=== PATIENT | male | born 1935 | race Caucasian/White ===

== ENCOUNTER 2017-10-31 18:37 | Inpatient (IN) | payer MEDICARE, OTHER ==
[~2017-10-31] VITALS: Ht 172.7 cm; Wt 66.8 kg
--- NOTE | ~2017-10-31 | HP ---
PATIENT: ALLISON MIGUEL MEDICAL RECORD: [id number] ACCOUNT: [id number] LOCATION:[address] : 35 ADMISSION DATE: 11/01/17 HISTORY AND PHYSICAL EXAMINATION DATE OF ADMISSION: 11/01/2017 CHIEF COMPLAINT: Cough and fever. HISTORY OF PRESENT ILLNESS: An 82-year-old white male started getting sick almost 10 days ago. He had lot of cough, congestion. He saw Dr. Tam in our office on 10/26/2017, and was treated with Tamiflu for presumed influenza. He has completed that. He has continued to have cough and fevers got worse, it was up to 104 at home. He presented to the Emergency Department. His white count was 16,000. Rapid influenza tests were negative. Chest x-ray showed nothing acute. Urinalysis showed just a few bacteria. His blood pressure in the ER was 106/60 when he got there and went down to 84/60 later. He is admitted for cough and fever. PAST MEDICAL HISTORY AND SURGICAL HISTORY: The patient has BPH, high cholesterol, and insomnia. 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 Surgical history: Tonsillectomy. HOME MEDICATIONS: Rosuvastatin 10 mg once a day, zolpidem 10 mg at bedtime, Plavix 75 mg once a day, and Crestor 10 mg once a day. DRUG ALLERGIES: None. HABITS: Former smoker. No alcohol or drugs. SOCIAL HISTORY: He is and retired. FAMILY HISTORY: Father at 81, he had a stroke. Mother at 80. She had diabetes and some sort of cancer. Her brother of lung cancer and another brother of a ruptured aneurysm. IMMUNIZATION HISTORY: He had Pneumovax 23 in 2005 and Prevnar 13 in 2014. REVIEW OF SYSTEMS: GENERAL: No major weight changes. HEENT: No particular sinus or allergy problems. RESPIRATORY: No history of COPD or emphysema. CARDIAC: No history of coronary artery disease. GASTROINTESTINAL: No diarrhea, constipation, or significant heartburn. GENITOURINARY: He has BPH. MUSCULOSKELETAL: No significant joint aches and pains. NEUROLOGIC: He had a CVA in 2014 with no residual. PSYCHIATRIC: No depression or melancholia. PHYSICAL EXAMINATION: VITAL SIGNS: Temperature 98.8, pulse 99, respirations 16, blood pressure is still running low and was measured at 84/46, O2 sat 95% on room air. GENERAL: He is awake, alert, does not appear to be in acute distress. HEENT: Grossly within normal limits. NECK: Supple. No JVD or bruit. HISTORY AND PHYSICAL [id number] ALLISON MIGUEL HEART: Regular rate and rhythm without murmur. LUNGS: Clear to auscultation. ABDOMEN: Soft, flat, nontender. EXTREMITIES: No edema. LABORATORY DATA: Urinalysis specific gravity 1.020, large ketones, negative leukocyte esterase, only a few bacteria. CBC with a white count 16,200, hemoglobin 14.3, 82% polys. Basic metabolic panel is all okay. Lactic acid is normal. Liver functions are all okay. Rapid influenza test negative. Chest x-ray shows no acute process. ASSESSMENT: Fever, cough, and hypotension. PLAN: IV fluids, started on Rocephin. Urine and blood cultures have been obtained. He is treated with Lovenox and Pepcid. Follow up cultures for her. Other tests and procedures as warranted. TRANSINT:[id number] Voice Confirmation ID: [id number] DOCUMENT ID: [id number] ANNABELLA ESTRADA MD at 1342 CC: [id number] DICTATION DATE: 11/01/171940 JACK TAMP OPERATOR: 11/01/172200 ADM IN [id number] [place] [address]
[~2017-10-31 18:37] MED LIST: BAYER CHEWABLE81 MG PO; CRESTOR10 MG PO; JALYN 0.5-0.41 EACH PO; MULTIPLE VITAMI1 TA1 PO; PLAVIX75 MG PO
[2017-10-31 20:01] LABS: BASOPHILS 0.1 % (0-2); EOSINOPHILS 0 % (0-7); HEMATOCRIT 41.1 % (42.0-54.0); HEMOGLOBIN 14.3 g/dL (13.5-17.5); IMMATURE GRANULOCYTES 0.7 % (0-5); LYMPHOCYTES 7.8 % (15-50); MCH 32.1 pg (26.0-34.0); MCHC 34.8 g/dL (31.0-37.0); MCV 92.2 fL (80.0-100.0); MEAN PLATELET VOLUME 9.5 fL (7.4-10.4); MONOCYTES 8.2 % (2-11); NEUTROPHILS 83.2 % (40-80); PLATELET COUNT 249 10x3/uL (130-400); RBC 4.46 10x6/uL (4.20-6.10); RDW 13.4 % (11.5-14.5); WBC 16.2 10x3/uL (4.8-10.8)
[2017-10-31 20:32] LABS: ALBUMIN 2.8 g/dL (3.4-5.0); ANION GAP 15.2 mmol/L (8-16); BILIRUBIN - TOTAL 0.88 mg/dL (0.2-1.3); CALCIUM 8.5 mg/dL (8.5-10.1); CREATININE - SERUM 1.1 mg/dL (0.6-1.3); POTASSIUM - SERUM 4.2 mmol/L (3.5-5.1)
[2017-10-31 22:40] LABS: APPEARANCE CLEAR (CLEAR); COLOR DK YELLOW (YELLOW); NITRITE NEGATIVE (NEGATIVE)
[2017-10-31 22:41] LABS: BILIRUBIN NEGATIVE (NEGATIVE); GLUCOSE NEGATIVE (NEGATIVE); KETONE LARGE mg/dL (NEGATIVE); PROTEIN TRACE mg/dL (NEGATIVE); UROBILINOGEN NORMAL (NORMAL)
[2017-10-31 22:42] LABS: BACTERIA FEW /hpf (NONE SEEN); MUCUS <1+ /lpf (NONE SEEN); RED CELLS - URINE 0-5 /hpf (0-5); WHITE CELLS - URINE 0-5 /hpf (0-5)
[2017-11-01 18:14] VITALS: BP 84/46; Ht 172.7 cm; Wt 66.8 kg
[2017-11-01 20:00] VITALS: BP 100/56
[2017-11-02] VITALS: BP 87/44
[2017-11-02 04:00] VITALS: BP 108/62
[2017-11-02 06:28] LABS: BASOPHILS 0.1 % (0-2); EOSINOPHILS 0.2 % (0-7); HEMOGLOBIN 13.1 g/dL (13.5-17.5); IMMATURE GRANULOCYTES 0.2 % (0-5); LYMPHOCYTES 12.3 % (15-50); MCH 31.6 pg (26.0-34.0); MCHC 34.5 g/dL (31.0-37.0); MCV 91.8 fL (80.0-100.0); MEAN PLATELET VOLUME 9.6 fL (7.4-10.4); MONOCYTES 8.5 % (2-11); NEUTROPHILS 78.7 % (40-80); PLATELET COUNT 250 10x3/uL (130-400); RBC 4.14 10x6/uL (4.20-6.10); RDW 13.6 % (11.5-14.5); WBC 12.2 10x3/uL (4.8-10.8)
[2017-11-02 06:41] LABS: CALC OSMOLALITY 283 mosm/kg (275-300); CALCIUM 7.8 mg/dL (8.5-10.1); CARBON DIOXIDE 26.6 mmol/L (21.0-32.0); CHLORIDE - SERUM 107 mmol/L (98-107); GLUCOSE 96 mg/dL (74-106); POTASSIUM - SERUM 3.6 mmol/L (3.5-5.1); SODIUM 143 mmol/L (136-145); UREA NITROGEN 10 mg/dL (7-18)
[2017-11-02 06:46] LABS: CREATININE - SERUM 0.8 mg/dL (0.6-1.3); eGFR NON AFRICAN AMERICAN > 90 mL/min (90-120)
[2017-11-02 11:01] VITALS: BP 96/59
[2017-11-02 13:41] VITALS: BP 119/65
[2017-11-02 17:40] VITALS: BP 110/70
[2017-11-02 19:00] VITALS: BP 117/67
[2017-11-03 04:00] VITALS: BP 106/68
[2017-11-03 06:10] LABS: BASOPHILS 0.1 % (0-2); EOSINOPHILS 0.5 % (0-7); HEMATOCRIT 32.8 % (42.0-54.0); HEMOGLOBIN 11.4 g/dL (13.5-17.5); IMMATURE GRANULOCYTES 0.3 % (0-5); LYMPHOCYTES 20.1 % (15-50); MCH 31.8 pg (26.0-34.0); MCHC 34.8 g/dL (31.0-37.0); MCV 91.6 fL (80.0-100.0); MEAN PLATELET VOLUME 9.6 fL (7.4-10.4); MONOCYTES 12.5 % (2-11); NEUTROPHILS 66.5 % (40-80); PLATELET COUNT 272 10x3/uL (130-400); RBC 3.58 10x6/uL (4.20-6.10); RDW 13.4 % (11.5-14.5)
[2017-11-03 06:47] LABS: CALC OSMOLALITY 283 mosm/kg (275-300); CALCIUM 7.6 mg/dL (8.5-10.1); CARBON DIOXIDE 25.9 mmol/L (21.0-32.0); CHLORIDE - SERUM 108 mmol/L (98-107); CREATININE - SERUM 0.8 mg/dL (0.6-1.3); GLUCOSE 117 mg/dL (74-106); POTASSIUM - SERUM 3.1 mmol/L (3.5-5.1); SODIUM 143 mmol/L (136-145); eGFR NON AFRICAN AMERICAN > 90 mL/min (90-120)
[2017-11-03 06:52] LABS: UREA NITROGEN 6 mg/dL (7-18)
[2017-11-03 09:37] VITALS: BP 122/69
[2017-11-03 11:41] VITALS: BP 128/64
[2017-11-03 16:01] VITALS: BP 122/66
[2017-11-03 21:44] VITALS: BP 122/72
[2017-11-04 01:15] VITALS: BP 109/57
[2017-11-04 05:36] LABS: BASOPHILS 0.1 % (0-2); EOSINOPHILS 0.7 % (0-7); HEMOGLOBIN 11.3 g/dL (13.5-17.5); IMMATURE GRANULOCYTES 0.1 % (0-5); MCH 31.5 pg (26.0-34.0); MCHC 34.2 g/dL (31.0-37.0); MCV 91.9 fL (80.0-100.0); MEAN PLATELET VOLUME 9.1 fL (7.4-10.4); MONOCYTES 15.4 % (2-11); NEUTROPHILS 56.7 % (40-80); PLATELET COUNT 292 10x3/uL (130-400); RBC 3.59 10x6/uL (4.20-6.10); RDW 13.5 % (11.5-14.5); WBC 7.2 10x3/uL (4.8-10.8)
[2017-11-04 05:43] LABS: CALC OSMOLALITY 280 mosm/kg (275-300); CARBON DIOXIDE 27.7 mmol/L (21.0-32.0); CHLORIDE - SERUM 106 mmol/L (98-107); CREATININE - SERUM 0.7 mg/dL (0.6-1.3); GLUCOSE 105 mg/dL (74-106); POTASSIUM - SERUM 3.3 mmol/L (3.5-5.1); SODIUM 142 mmol/L (136-145); UREA NITROGEN 6 mg/dL (7-18); eGFR NON AFRICAN AMERICAN > 90 mL/min (90-120)
[2017-11-04 06:39] VITALS: BP 100/61
[2017-11-04 07:48] VITALS: BP 107/69
[2017-11-04 10:52] VITALS: BP 117/76
[2017-11-04] MEDS ORDERED: AUGMENTIN 875-11 TAB PO (14:01)
[2017-11-04] MEDS ORDERED: ROBITUSSIN AC (10 M1 PO (14:02)
== END 2017-11-04 17:30 | disposition home or self-care (01) | DRG 202 ==
LOC: D.ER 18:37 → D.M2 11-01 16:08
PROVIDERS: Family Medicine; Physician Assistant Medical
DX: J20.9 Acute bronchitis, unspecified (principal); J18.9 Pneumonia, unspecified organism; I95.9 Hypotension, unspecified; G47.00 Insomnia, unspecified; E78.00 Pure hypercholesterolemia, unspecified; N40.0 Benign prostatic hyperplasia without lower urinary tract symptoms; Z86.73 Personal history of transient ischemic attack (TIA), and cerebral infarction without residual deficits

== ENCOUNTER 2020-04-03 12:32 | Outpatient (CLI) | payer MEDICARE, OTHER ==
[~2020-04-03] VITALS: Ht 172.7 cm; Wt 65.8 kg
--- NOTE | ~2020-04-03 | HEMODYNAMI ---
PATIENT:ALLISON MIGUEL MEDICAL RECORD: [id number] : 35 LOCATION:[facility] ADMISSION DATE: 04/03/20 Generatedon:04/03/202014:30 Patient name: ALLISON MIGUEL Patient #: [id number] SSN: : 1935 Date of study: 04/03/2020 Page: Of Hemodynamic Procedure Report Patient Data Patient Demographics Procedure consent was obtained First Name: ALLISON Gender: Male Last Name: LAMONT : 1935 [facility] Initial: E Age: 84 year(s) Patient #: [id number] Race: Unknown Additional ID: [id number] Contact details [address]: [address] [place] [address] State: [place] City: [place] Zip code: [address] Past Medical History Allergies: No known allergies Admission Admission Data Admission Date: 04/03/2020 Admission Time: 12:32 Arrival Date: 04/03/2020 Arrival Time: 0:00 Height (in.): 67.72 BSA: 1.78 (m2) Height (cm.): 172 BMI: 22.31 (kg/m2) Weight (lbs.): 145.51 Weight (kg.): 66 Lab Results Lab Result Date: 04/03/2020 Lab Result Time: 0:00 Biochemistry Name Units Result Min Max BUN mg/dl 11 --(-*--)-- 7 18 Creatinine mg/dl 1.1 --(--*-)-- 0.6 1.3 eGFR ml/min 67.61426 *-(----)-- 90 120 NONAFRICAN CBC Name Units Result Min Max Hematocrit % 44.3 --(*---)-- 42 54 Hemoglobin g/dl 14.9 --(-*--)-- 13.5 17.5 Procedure Procedure Types Cath Procedure Diagnostic Procedure Cardioversion External Procedure Description Procedure Date Procedure Date: 04/03/2020 Procedure Start Time: 14:10 Procedure End Time: 14:24 Procedure Staff Name Function Jone Saha MD Performing Physician Ada Wang RT Monitor Nikhil Christian RT Monitor Jethro Nelson Jr, CRNA Additional personnel Treasure Lamar RN Nurse Clay Gomez RN Nurse Mariela Sanchez RN Racing Manager Hemodynamics Rest BSA: 1.78 (m2) HGB: 14.9 (g/dl) O2 Consumption: Estimated: 210.24 (ml/min) O2 Consumption indexed: Estimated:118.11 (ml/min/m) Heart Rate: 82 (bpm) Snapshots Pre Cath Intra NCS Post Cath Vital Signs Time Heart Resp SPO2 etCO2 NIBP (mmHg) Rhythm Pain Sedation Rate (ipm) (%) (mmHg) Status Level (bpm) 14:06:49 77 8 99 33.7 105/43(93) NSR 0 (11) 10(A) , No pain 14:10:45 87 8 100 32.1 118/82(104) NSR 0 (11) 10(A) , No pain 14:14:53 100 15 100 0 82/59(73) NSR 0 (11) 10(A) , No pain 14:19:37 62 12 98 12.7 121/68(98) NSR 0 (11) 10(A) , No pain Procedure Log Time Note 13:38:43 Informed consent obtained and on chart 13:39:33 Procedure Status Cardioversion. 13:39:34 Time tracking: Regular hours (M-F 7:00 - 5:00) 13:39:36 Plan of Care:Hemodynamics will remain stable., Cardiac rhythm will remain stable., Comfort level will be maintained., Respiratory function will remain adequate., Patient/ family verbilizes understanding of procedure., Procedure tolerated without complication., Recovers from procedure without complications.. 13:41:20 H&P Date Dictated: 03/21/2020 Within 30 days and on chart., H&P Addendum completed by physician on day of procedure. (MUST COMPLETE FOR ALL OUTPATIENTS). 13:41:25 Patient allergic to No known allergies 13:43:15 Lab Result : Creatinine 1.1 mg/dl 13:43:15 Lab Result : BUN 11 mg/dl 13:43:15 Lab Result : eGFR NONAFRICAN 67.16129 ml/min 13:43:15 Lab Result : Hematocrit 44.3 % 13:43:15 Lab Result : Hemoglobin 14.9 g/dl 13:43:24 Patient Weight : 145.51 lbs 13:43:27 Patient Height : 67.72 inches 13:43:32 Arrival Date: 04/03/2020 12:00:00 AM 13:56:40 Nikhil Christian RT(R) (CV) sent for patient. Start room use. 14:01:54 Patient arrived from Pre/Post Procedure Room to [facility] 2. Patient remains on bed/stretcher for procedure. 14:01:57 Warm blankets applied, and александр hugger turned on for patient comfort. 14:01:58 Correct patient and procedure confirmed by team. 14:01:59 ECG and BP/O2 sat monitors applied to patient. 14:05:35 Vital chart was started 14:05:37 Baseline sample Acquired. 14:05:41 Rhythm: atrial fibrillation 14:05:42 Full Disclosure recording started 14:05:45 Pre-procedure instructions explained to patient. 14:05:45 Pre-op teaching completed and patient verbalized understanding. 14:05:47 Family in patients room. 14:05:48 Patient NPO since Midnight. 14:07:30 Is patient on blood thinner?Yes 14:07:37 ACC The patient was administered the following blood thiners within the last 24 hours: Eliquis 14:07:43 ----Pre-sedation anethsthesia assessment.---- 14:07:46 Previous problem with sedation/anesthesia? No ? 14:07:47 Snore? Yes 14:07:49 Sleep apnea? Yes 14:07:51 Deviated septum? No 14:07:52 Opens mouth fully? Yes 14:07:53 Sticks out tongue? Yes 14:07:56 Airway obstruction? No ? 14:07:59 Dentures? No ? 14:08:22 IV patent on arrival in left antecubital with 0.9% NaCl at [facility]. 14:09:01 Jethro Nelson Jr, CRNA present and monitoring patient for TIVA. 14:09:47 Physician arrived 14:09:48 --------ALL STOP TIME OUT------ 14:09:49 Final Timeout: patient, procedure, and site verified with staff and physician. All members of the team are in agreement. 14:10:13 ------Cardioversion------ 14:10:14 Quick combo pads placed on patients chest and back. 14:10:26 Fire Safety Assessment: C--Open oxygen or nitrous oxide is being used. 14:10:34 Physical assessment completed. ASA score P 2 - A patient with mild systemic disease as per Jone Saha MD. 14:10:49 Sedation plan: TIVA Medication:Propofol 14:16:13 Defibrillator synced and charged to 200 Joules. 14:16:21 Shock delivered. 14:16:55 Patient cardioverted to sinus rhythm . 14:17:00 Procedure ended.(Physican Out) 14:21:45 Post-procedure physical assessment completed. ASA score P 2 - A patient with mild systemic disease as per Jone Saha MD. 14:21:50 Post procedure rhythm: sinus rhythm 14:21:58 Patient needs reinforcement of post procedure teaching. 14:22:00 Procedure and supply charges have been captured, reviewed, submitted and are correct. 14:22:16 Vital chart was stopped 14:22:55 Operative report dictated upon procedure completion. 14:22:56 See physician's report for complete and final results. 14:23:04 Report given to Pre/Post Procedure Room. 14:24:00 Procedure ended. 14:24:00 Full Disclosure recording stopped Signature Audit Mcintire Stage Time Signature Unsigned Intra-Procedure 04/03/2020 Nikhil Christian RT(R) 2:24:22 PM RT(R) (CV) (CV) 04/03/2020 2:28:12 PM Intra-Procedure 04/03/2020 Nikhil Christian 2:28:50 PM RT(R) (CV) Intra-Procedure 04/03/2020 Mariela Sanchez 2:29:28 PM RN Intra-Procedure 04/03/2020 Jone Pickering 2:30:11 PM Blair BISHOP Signatures Performing Physician : Signature : Jone Saha MD Date : Time : Monitor : Ada Wang Signature : RT Date : Time : Monitor : Nikhil Christian RT Signature : Date : Time : Nurse : Buffie Lamar RN Signature : Date : Time : Nurse : Clay Gomez RN Signature : Date : Time : [facility] [address] [address]
[~2020-04-03 12:32] MED LIST changes: +AUGMENTIN 875-11 TAB PO; +ROBITUSSIN AC (10 M1 PO
[2020-04-03] MEDS ORDERED: PROPAFENONE HC150 MG PO (12:55)
[2020-04-03] MEDS ORDERED: ELIQUIS2.5 MG PO (12:55)
[2020-04-03] MEDS ORDERED: BENADRYL25 MG PO (12:56)
[2020-04-03] MEDS ORDERED: AMBIEN10 MG PO (12:57)
[2020-04-03] MEDS ORDERED: ALIGN4 MG PO (12:57)
[2020-04-03 13:12] VITALS: BP 132/72; Ht 172.7 cm; Wt 65.8 kg
[2020-04-03 13:27] LABS: BASOPHILS 0.2 % (0-2); EOSINOPHILS 2.1 % (0-7); HEMATOCRIT 44.3 % (42.0-54.0); HEMOGLOBIN 14.9 g/dL (13.5-17.5); IMMATURE GRANULOCYTES 0.2 % (0-5); LYMPHOCYTES 31.1 % (15-50); MCH 31.5 pg (26.0-34.0); MCHC 33.6 g/dL (31.0-37.0); MCV 93.7 fL (80.0-100.0); MEAN PLATELET VOLUME 9.1 fL (7.4-10.4); MONOCYTES 7.4 % (2-11); PLATELET COUNT 237 10x3/uL (130-400); RBC 4.73 10x6/uL (4.20-6.10); RDW 13.8 % (11.5-14.5); WBC 6.1 10x3/uL (4.8-10.8)
[2020-04-03 13:36] LABS: ANION GAP 10.1 mmol/L (8-16); CALCIUM 8.9 mg/dL (8.5-10.1); CREATININE - SERUM 1.1 mg/dL (0.6-1.3); POTASSIUM - SERUM 4.1 mmol/L (3.5-5.1)
[2020-04-03 13:42] LABS: INR 1.05 (0.85-1.17); PROTIME 13.7 SECONDS (11.6-15.0)
--- NOTE | 2020-04-03 14:40 | NUR ---
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 MONITORS ESTAB. AT BS. SEE RETAIL SALES ASSOCIATE BILINGUAL. ALARMS ON AND C/L IN REACH.
--- NOTE | 2020-04-03 14:55 | NUR ---
PT RESTING QUIETLY, HR 61, NO ECTOPY. VSS. AT BS, DENIES NEEDS. ALARMS ON AND C/L IN REACH.
--- NOTE | 2020-04-03 15:10 | NUR ---
CM - NSR, NO ECTOPY. VSS. PT DENIES NEEDS.
--- NOTE | 2020-04-03 15:15 | NUR ---
VSS. CM - NSR. PIV D/C'D INTACT, DSG APPLIED. PT ALLOWED TO GET UP TO GET DRESSED AND GO TO BR INDEPENDENTLY. AT BS.
--- NOTE | 2020-04-03 15:30 | NUR ---
ALL DISCHARGE INSTRUCTIONS REVIEWED WITH PT AND - INCLUDING RESTRICTIONS, MEDS AND S/S TO REPORT TO MD.
--- NOTE | 2020-04-03 15:40 | NUR ---
PT D/C'D VIA WC TO PRIVATE VEHICLE WITH ALL PAPERWORK AND BELONGINGS.
--- NOTE | 2020-04-04 08:26 | OP ---
PATIENT NAME: NINO MIGUEL MEDICAL RECORD: [id number] :35 LOCATION:[facility] ADMISSION DATE: SURGEON: FRAN ARAUJO MD DATE OF OPERATION: 04/03/2020 PROCEDURE: Cardioversion. INDICATION: Atrial fibrillation. DESCRIPTION OF PROCEDURE: After general sedation via TIVA via anesthesia, single synchronized shock was successful in restoring atrial fibrillation to normal sinus rhythm. IMPRESSION: Successful cardioversion on Nino Miguel. COMPLICATIONS: None. During the procedure, the patient was monitored continuously with pulse oximetry, telemetry and noninvasive blood pressure monitoring. TRANSINT:[id number] Voice Confirmation ID: [id number] DOCUMENT ID: [id number] FRAN ARAUJO MD at 0826 CC: [id number] DICTATION DATE: 04/03/20 1418 CONTROL PANEL ASSEMBLER: 04/03/20 1817 DEP CLI 04/03/20 [id number] [place] [address]
== END 2020-04-03 15:40 | disposition home or self-care (01) ==
LOC: D.CATH 12:32
PROVIDERS: ATTEND Internal Medicine Interventional Cardiology
DX: I48.91 Unspecified atrial fibrillation (principal); E78.5 Hyperlipidemia, unspecified